=== PATIENT | male | born 1985 | race Caucasian/White ===

== ENCOUNTER → 2018-12-06 | Outpatient (CLI) | payer OTHER ==
[~2018-12-06] MED LIST: CYCL10 PO; HYDACE5 PO; INSULIN
== END ==
LOC: LAB 14:15 → LAB SHORT 14:15
DX: L72.8 Other follicular cysts of the skin and subcutaneous tissue (principal)
CPT/HCPCS: 87070; 87075; 87077; 87186; 87205

== ENCOUNTER → 2019-05-30 | Outpatient (CLI) | payer OTHER | END | disposition home or self-care (01) | LOC: LAB EV 13:17 → LAB SHORT 13:17 | DX: L03.119 Cellulitis of unspecified part of limb (principal) | CPT/HCPCS: 87070; 87077; 87147; 87186; 87205 ==

== ENCOUNTER 2021-07-31 23:09 | Emergency (ER) | payer OTHER ==
[~2021-07-31] VITALS: Ht 175.3 cm; Wt 86.2 kg
[2021-08-01] MEDS ORDERED: HUMALOG100 UNIT/1 SC (00:40)
[2021-08-01] MEDS ORDERED: TRESIBA100 UNIT/2 SC (00:40)
== END 2021-08-01 00:59 | disposition home or self-care (01) ==
LOC: ER 23:09
DX: E10.65 Type 1 diabetes mellitus with hyperglycemia (principal); Z76.0 Encounter for issue of repeat prescription
CPT/HCPCS: 82947; 99281-25; J1815